=== PATIENT | female | born 1990 | race Caucasian/White ===

== ENCOUNTER 2017-11-18 07:00 | Inpatient (IN) ==
[2017-11-18] MEDS ORDERED: METHYLERGONOVINE 0.2 MG/ML INJECTION IM PRN (07:02)
[2017-11-18] MEDS ORDERED: MAG-AL + SIM ORAL LIQUID 30ml PO PRN ×2 (07:02→19:12)
[2017-11-18] MEDS ORDERED: ACETAMINOPHEN 500 MG TABLET PO PRN ×2 (07:02→19:12)
[2017-11-18] MEDS ORDERED: CALCIUM CARBONATE Chewable 500mg TABLET PO PRN ×2 (07:02→19:12)
[2017-11-18] MEDS ORDERED: CARBOPROST 250 MCG/ML INJECTION IM PRN (07:02)
[2017-11-18] MEDS ORDERED: LIDOCAINE 1% (10mg/ml) 2mL INJ PF SDV ID PRN (07:02)
[2017-11-18] MEDS ORDERED: D5LR 1,000 ML IV PRN (07:03)
[2017-11-18] MEDS ORDERED: OXYTOCIN DRIP 30 UNIT/500 ML ML IV PRN (07:03)
[2017-11-18] MEDS: LR 1,000 ML IV PRN ×3 (07:40→16:42)
[2017-11-18] MEDS: D5LR 1,000 ML IV PRN ×2 (07:41→17:49)
[2017-11-18 07:46] VITALS: BMI 40.4
--- NOTE | 2017-11-18 12:54 | Anesthesia Preoperative Report ---
Anesthesia Epidural/Spinal Rec - Date and Time Date: 11/18/17 Preoperative Diagnosis: induction Procedure: Labor Epidural Plan: Epidural - Vital Signs Vital Signs: Pulse Rate 94 11/18/17 07:51 Respiratory Rate 16 11/18/17 07:51 Blood Pressure 129/66 11/18/17 07:51 Pulse Oximetry 97 11/18/17 07:51 /Para: P:0 - Medictaions & Allergies Inpatient Medications: Current Medications Acetaminophen (Tylenol) 500 - 1,000 mg PO Q4H PRN PRN Reason: Pain Al Hydroxide/Mg Hydroxide (Maalox Plus) 30 ml PO Q3H PRN PRN Reason: Indigestion Calcium Carbonate (Tums) 500 - 1,000 mg PO Q2H PRN PRN Reason: Indigestion Carboprost Tromethamine (Hemabate) 250 mcg IM O PRN PRN Reason: .Downtime Lactated Ringer's (Lactated Ringers) 1,000 mls @ 999 mls/hr IV .Q1H1M PRN Last Admin: 11/18/17 07:40 Dose: 999 mls/hr Dextrose/Lactated Ringer's (Dextrose 5%-Lactated Ringers) 1,000 mls @ 125 mls/ hr IV .Q8H PRN PRN Reason: Labor Last Admin: 11/18/17 07:41 Dose: 125 mls/hr Dextrose/Lactated Ringer's (Dextrose 5%-Lactated Ringers) 1,000 mls @ 125 mls/ hr IV .Q8H PRN PRN Reason: Labor Oxytocin (Pitocin Drip) 30 unit in 500 mls @ 2 mls/hr IV .Q24H PRN; Protocol PRN Reason: Induction/Augmentation Last Admin: 11/18/17 07:39 Dose: 2 mls/hr Lidocaine HCl (Xylocaine-Mpf 1% Vial) 0.2 mg ID O PRN PRN Reason: IV Start Methylergonovine Maleate (Methergine) 0.2 mg IM O PRN Misoprostol (Cytotec) [address] ONCE PRN Allergies/Adverse Reactions: Allergies Allergy/AdvReac Type Severity Reaction Status Date / Time No Known Allergies Allergy Verified 10/28/17 10:10 - Home Medications Home Medications: Home Medications Medication Instructions Recorded Confirmed Type Acetaminophen [Tylenol] 1,000 mg PO Q5H PRN 10/28/17 10/28/17 History Cetirizine HCl [Zyrtec] 1 tab PO DAILY PRN 10/28/17 10/28/17 History Pnv No.95/Ferrous Fum/Folic AC 1 each PO DAILY 10/28/17 10/28/17 History [ Tablet] - Medical History Neuro/Musculoskeletal: Denies: Depression Other History: Reports: Now DENIES: Anesthesia Reactions - Surgical History Reproductive Surgery/Treatment: DENIES: Section Anesthesia Reactions: None Hx Family Anesthesia Reaction: No History of Motion Sickness: No - Social History Smoking Status: Never smoker Second Hand Exposure: No Substance Use Type: does not use Alcohol Intake Frequency: does not drink Hx Chewing Tobacco Use: No - Pertinent Findings Lab Data: CBC and BMP 11/18/17 07:24 EKG Rhythm: Normal Sinus Rhythm - Physical Exam Respiratory Exam: lungs clear Cardiovascular Exam: regular rate and rhythm, no murmur - Airway Assessment Mallampati Score: II TMD: 3 Fingerbreadths Neck Extension: good Overall Assessment: no airway concerns - ASA ASA Score: 2 - Discussion Discussion: Discussed risks/options/alternatives of anesthesia and questions answered. Patient consents. Nursing pain assessment noted. Anesthesia Discussion: spouse Attestation Statement: Prior to the delivery of any anesthetic medication, I examined the patient, developed the plan, obtained the patient's consent and discussed the risk and benefits of the procedure with the patient/guardian.
[2017-11-18] MEDS ORDERED: DiphenhydrAMINE 50 MG/ML INJECTION IVP PRN (12:56)
[2017-11-18] MEDS ORDERED: ROPIVACAINE 1% 10MG/ML INJ 200 MG, SUFentanil 50 MCG in NS 100 ML EPI PRN (12:56)
[2017-11-18] MEDS ORDERED: ONDANSETRON 4 MG/2 ML INJECTION IVP PRN (12:56)
[2017-11-18] MEDS ORDERED: NALOXONE 0.4 MG/ML INJECTION IVP PRN (12:56)
[2017-11-18] MEDS ORDERED: DiphenhydrAMINE 25 MG CAPSULE PO PRN (19:12)
[2017-11-18] MEDS ORDERED: HYDROCORTISONE 2.5% CREAM 30gm RECTALLY PRN (19:12)
[2017-11-18] MEDS ORDERED: HYDROCODONE/APAP 5mg/325mg TABLET PO PRN (19:12)
--- NOTE | 2017-11-18 19:17 | OB/GYN Procedure Note ---
Delivery date: 11/18/17 Events: Labor Induction Induction method: per pitocin protocol Delivery augmentation: rupture of membranes Delivery monitor: external FHT, internal uterine Route of delivery: Laceration description: Periurethral - 1st Degree Estimated blood loss (mL): 200 Anesthesia type: Epidural Disposition: floor - [place] Baby 1 Infant gender: Male presentation: Vertex position: Vertex-by exam Placenta delivery description: Spontaneous cord vessel description: 3 Vessels at 1 minute: 8 at 5 minutes: 9
[2017-11-18] MEDS: IBUPROFEN 800 MG TABLET PO PRN (19:46)
--- NOTE | 2017-11-18 20:32 | Anesthesia Postoperative Note ---
- Date and Time Date: 11/18/17 Time: 20:31 - Status Patient Participated in Evaluation: Patient Participated in Person Vital Signs: Pulse Rate 94 11/18/17 07:51 Respiratory Rate 16 11/18/17 07:51 Blood Pressure 129/66 11/18/17 07:51 Pulse Oximetry 97 11/18/17 13:07 Respiratory Function: Airway Patent Cardiovascular Function: Regular Pulse Mental Status: Alert and Oriented Pain Intensity: 0 Hydration: Taking PO Fluids Complications During Recover: None Apparent - Follow-Up Instructions Instructions: Per Surgeon
[2017-11-18] MEDS ORDERED: OXYTOCIN DRIP 30 UNIT/500 ML ML IV SCH (21:15)
[2017-11-19 00:42] VITALS: O2SAT 98
[2017-11-19] MEDS: IBUPROFEN 800 MG TABLET PO PRN ×3 (03:29→22:32)
--- NOTE | 2017-11-19 08:04 | OB/GYN Progress Note ---
OB-PP Progress Note - General PPD1 - Subjective Date: 11/19/17 Lochia: Moderate Pain: controlled Voiding: voiding Nausea or Vomiting Present: No - Objective Vital Signs: Last Vital Signs Temp 98.6 F 11/18/17 23:11 Pulse 76 11/18/17 23:11 Resp 16 11/18/17 23:11 BP 131/62 11/18/17 23:11 Pulse Ox 98 11/18/17 23:11 Urine Output: good General: alert and oriented Abdomen: fundus firm Extremities: non-tender - Assessment Assessment: - Plan Plan: routine care (Plans for dismissal tomorrow. )
[2017-11-19] MEDS ORDERED: DOCUSATE CALCIUM 240 MG CAPSULE PO SCH (09:00)
--- NOTE | 2017-11-19 09:40 | Labor and Delivery Note ---
DATE OF SERVICE 11/18/2017 There was a spontaneous vaginal delivery over intact perineum of a viable male in cephalic presentation with Apgars of 8/9/9. There was a tight nuchal cord that was delivered through and posterior arm presentation that was reduced prior to delivery of the shoulder. The patient had epidural anesthesia. Estimated blood loss was 200 mL. There was spontaneous delivery of the placenta with a three-vessel cord. The patient was induced with Pitocin and augmented during induction with amniotomy. She did have an IUPC placed but after that progressed well through labor. From 6 cm to delivery took approximately three hours. Induction of labor was performed for postdates. She had two hemostatic bilateral periurethrals that were not repaired. [facility]
[2017-11-19 15:36] VITALS: RESP 18
[2017-11-20] MEDS: IBUPROFEN 800 MG TABLET PO PRN (07:05)
[2017-11-20 07:17] VITALS: BP 109/68; PULSE 69; TEMP 97.8
--- NOTE | 2017-11-20 08:18 | OB/GYN Progress Note ---
OB-PP Progress Note - General PPD2 Maternal Group B Strep: Negative Maternal blood type: O+ Maternal Rubella Status: Immune - Subjective Date: 11/20/17 Lochia: Moderate Pain: controlled Voiding: voiding Nausea or Vomiting Present: No - Objective Vital Signs: Last Vital Signs Temp 97.8 F 11/20/17 07:07 Pulse 69 11/20/17 07:07 Resp 18 11/20/17 07:07 BP 109/68 11/20/17 07:07 Pulse Ox 98 11/19/17 15:30 General: alert and oriented Respiratory: non-labored Abdomen: fundus firm Extremities: non-tender Edema: none - Assessment (1) (spontaneous vaginal delivery) Status: Acute - Assessment Assessment: SP, - Plan Plan: routine care, discharge home Expected date of discharge: 11/20/17 Doing well. Baby on Bili light.
== END 2017-11-20 14:00 | disposition home or self-care (01) | DRG 775 ==
LOC: MC 07:00
PROVIDERS: ADMIT Obstetrics & Gynecology; ATTEND Obstetrics & Gynecology